=== PATIENT | female | born 1930 | race Caucasian/White ===

== ENCOUNTER 2017-08-13 14:10 | Outpatient (CLI) | payer MEDICARE, OTHER | END 2017-08-13 14:11 | disposition home or self-care (01) | LOC: BICMAMMO 14:10 | PROVIDERS: ATTEND Family Medicine | DX: Z12.31 Encounter for screening mammogram for malignant neoplasm of breast (principal); R92.1 Mammographic calcification found on diagnostic imaging of breast; Z85.3 Personal history of malignant neoplasm of breast | CPT/HCPCS: 77063; 77067 ==

== ENCOUNTER 2017-08-20 07:28 | Outpatient (CLI) | payer MEDICARE, OTHER ==
--- NOTE | 2017-08-20 17:54 | MRI ---
MRI BRAIN WITH AND WITHOUT IV CONTRAST: INDICATIONS: History of breast cancer and memory loss. COMPARISON: 03/23/2016 CONTAST: [facility] 17 mL. FINDINGS: No area of restricted diffusion is present. No intracranial hemorrhage is noted. No abnormal enhanc ement is demonstrated. There is mild generalized cerebral and cerebellar atrophy. There is progress kassandra severe chronic small vessel white matter ischemic change. The septum pellucidum and third ventri minerva are midline. There are appropriate flow voids seen within the major intracranial vessels. The n ative lens has been replaced. There is some mild mucosal thickening within the ethmoid air cells. IMPRESSION: 1. No overt evidence to suggest intracranial metastatic disease. 2. Worsening severe chronic small vessel white matter ischemic change. 3. Mild to moderate generalized cerebral and cerebellar atrophy. 4. Mild paranasal sinus disease. POS: [facility]
== END 2017-08-20 07:29 | disposition home or self-care (01) ==
LOC: BICMRI 07:28 → MRI 07:29
PROVIDERS: ATTEND Family Medicine
DX: G30.9 Alzheimer's disease, unspecified (principal); F02.80 Dementia in other diseases classified elsewhere, unspecified severity, without behavioral disturbance, psychotic disturbance, mood disturbance, and anxiety; G31.9 Degenerative disease of nervous system, unspecified; J32.9 Chronic sinusitis, unspecified
CPT/HCPCS: 36415; 70553; 80048; 80061; 80076

== ENCOUNTER 2017-11-08 10:20 | Outpatient (CLI) | payer MEDICARE, OTHER | END 2017-11-08 10:21 | disposition home or self-care (01) | LOC: BICULT 10:20 | PROVIDERS: ATTEND Urology | DX: R31.29 Other microscopic hematuria (principal) | CPT/HCPCS: 76770 ==

== ENCOUNTER 2017-12-25 10:44 | Observation (INO) | payer MEDICARE, OTHER ==
--- NOTE | 2017-12-25 11:21 | CT ---
CT BRAIN NONCONTRAST: 12/25/2017 10:56 a.m. HISTORY: A 67-year-old female with acute stroke symptoms: Dysarthria. Dr. Mina called this stroke alert protocol report STAT to Dr. Pederson at 11:08 a.m. on 12/25/2017. FINDINGS: There is no midline shift or any other mass effect. There is no evidence of acute intracranial hemor rhage, large cortical infarction, or extraaxial fluid collection. The calvarium is intact. There is diffuse parenchymal volume loss. There are low attenuation areas in the white matter. These are no nspecific, but in a patient of this age, they are probably chronic ischemic white matter changes due to microvascular atherosclerosis. There is mild to moderate ventriculomegaly involving the lateral a nd third ventricles. There is no interval change compared to the MRI of 08/20/2017. IMPRESSION: 1) No acute intracranial findings. 2) Involutional changes and moderately severe chronic ischemic white matter changes. 3) Stable ventriculomegaly. CODE CR jn [] POS: [facility]
[2017-12-25 12:11] LABS: CKMB 1.2 ng/mL (0-6.6); Troponin I Less than 0.010 ng/mL (< 0.028)
[2017-12-25] MEDS ORDERED: Ondansetron HCl/PF 4 MG/2 ML Vial ONE (12:14)
[2017-12-25 12:16] LABS: ALT (SGPT) 15 U/L (8-55); AST (SGOT) 26 U/L (5-34); Albumin 4.2 g/dL (3.4-4.8); Alkaline Phosphatase 65 U/L (40-150); Anion Gap 16 mmol/L (10-20); BUN (Urea Nitrogen) 19 mg/dL (9.8-20.1); Bilirubin, Total 1.1 mg/dL (0.2-1.2); CK (CPK) 68 U/L (29-168); Calc. Creatinine Clearance 0 mL/min (70-130); Calcium 9.6 mg/dL (7.8-10.44); Carbon Dioxide 22 mmol/L (23-31); Chloride 101 mmol/L (98-107); Estimated GFR-MDRD 65; Globulin 2.7 g/dL (2.4-3.5); Glucose 128 mg/dL (83-110); Potassium 4.4 mmol/L (3.5-5.1); Protein, Total 6.9 g/dL (6.0-8.3); Sodium 135 mmol/L (136-145)
[2017-12-25 12:21] LABS: Hemoglobin 14.8 g/dL (12.0-16.0); Mean Corpuscular HGB CONC 32.5 g/dL (32.0-36.0); Mean Corpuscular Hemoglobin 30.2 pg (27.0-31.0); Mean Corpuscular Volume 92.8 fL (78.0-98.0); Mean Platelet Volume 9.2 fL (7.4-10.4); Platelet Count 142 thou/uL (130-400); RBC Distribution Width 13.2 % (11.5-14.5); Red Blood Cell (RBC) Count 4.91 mill/uL (4.20-5.40); White Blood Cell (WBC) Count 7.4 thou/uL (4.8-10.8)
[2017-12-25 12:23] LABS: Band 9 % (5-11); Lymphocytes 14 % (21-51); MDiff Complete? YES; Monocytes 5 % (0-10); Neutrophil 71 % (42-75); RBC Morphology Normal; Reactive Lymphocytes 1 % (0-10)
[2017-12-25 12:48] LABS: Bilirubin Negative (Negative); Blood, Urine Moderate (Negative); Clarity TURBID (Clear); Glucose, Urine (Dipstick) Negative (Negative); Leukocyte Large (Negative); Nitrite Positive (Negative); Protein, Urine (Dipstick) 300 mg/dL (Neg-Trace); Specific Gravity, Urine 1.012 (1.002-1.036)
[2017-12-25 12:51] LABS: Bacteria/HPF 4+ HPF (None Seen); Hyaline Casts/LPF 4-6 HYALINE CAST LPF (0-3 Hyaline); Pathc Cast-AUWi Flag 1.83 (0-2.49); Squamous Epithelial 0-3 HPF (0-3)
[2017-12-25 12:55] LABS: Yeast-AUWi Flag 84.3 (0-25.0)
[2017-12-25 13:02] LABS: Yeast-All Forms None Seen HPF (None Seen)
[2017-12-25] MEDS ORDERED: cefTRIAXone\\ROCEPHIN 2 GM VIAL ONE (13:35)
--- NOTE | 2017-12-25 14:08 | PDOC.FPRHP ---
- History of Present Illness Chief Complaint: Slurred speech, aphasia History of Present Illness: Patient's noted that she was having difficulty talking to him and that she was having slurred speech. Patient's denied any weakness or facial dropping that he noted. Patient was "aphasic" per . This all started around 9:00 AM. She was fine upon waking up this AM. Over the last few days no new complaints. Patient does have history of dementia. Patient denies any painful urination, increased frequency, or chills at home. Patient's states that she never wets her bed, but this morning she did. Chills this AM before presenting to ED and chills progressed here. Appetite has been poor the last 2-3 weeks. Patient normally gets around with walker. Denies chest pain, shortness of breath. Has not felt particularly sick aside from nausea this AM. No emesis or diarrhea. Patient with history of ulcerative colitis. Endorses transiently blurred vision x2 weeks. Dizziness upon standing going back to fall over a year ago. History of atrial fibrillation cardioconverted years ago. Never on blood thinners due to fall risk. Follows with Dr. Argueta. Last saw Dr. Argueta a few months ago. - Allergies/Adverse Reactions Allergies Allergy/AdvReac Type Severity Reaction Status Date / Time levofloxacin [From Levaquin] Allergy Unknown Nausea Verified 04/17/16 23:29 morphine Allergy Unknown Nausea Verified 04/17/16 23:29 - Home Medications Medication Instructions Recorded Confirmed Type Atorvastatin Calcium [Lipitor] 80 mg PO HS 10/29/15 12/25/17 History Multivit with Iron,Minerals 1 tablet PO DAILY 10/29/15 12/25/17 History [[facility]] azaTHIOprine 50 mg PO QAM 10/29/15 12/25/17 History Mesalamine [Delzicol] 800 mg PO BID 11/02/15 12/25/17 History Calcium Carbonate/Vitamin D3 2 tablet PO DAILY 11/28/15 12/25/17 History [Calcium 600 + Vitamin D] azaTHIOprine [Imuran] 50 mg PO HS 11/28/15 12/25/17 History Aspirin [Low Dose Aspirin EC] 81 mg PO DAILY 02/05/16 12/25/17 History Ascorbic Acid [Vitamin C Chewable 500 mg PO DAILY 04/17/16 12/25/17 History Tablet] Celecoxib 200 g PO DAILY 12/25/17 12/25/17 History Cetirizine HCl [Zyrtec] 10 mg PO DAILY 12/25/17 12/25/17 History Donepezil HCl 10 mg PO DAILY 12/25/17 12/25/17 History Estradiol [Estrace 0.01% Vaginal 1 applic VAG Q7D 12/25/17 12/25/17 History Cream] Metoprolol Succinate [Toprol Xl] 50 mg PO BID 12/25/17 12/25/17 History Mirabegron [Myrbetriq] 50 mg PO DAILY 12/25/17 12/25/17 History - History PMHx: HTN well controlled, HLD, Ulcerative colitis, Atrial fibrillation cardioconverted, Hx of breast cancer PSHx: Bilateral knee replacement surgery, Mastectomy of right breast, Back pain to remove spinal lesion, Cataract surgery, Aortic and mitral valve replacement FHx: Father with CAD s/p CABG, Mother with history of CVA in early Social: Patient lives at home with . They have help 8 AM to 8 PM. Quit smoking 1992, smoking 4-5 cigarettes per day. Endorses 30 mL of rum a day. Denies drug use. - Review of Systems ROS unobtainable: other (Most ROS obtained from patient's , pt with history of dementia) General: reports: fever/chills, weight/appetite/sleep changes (over last several weeks decreased appetite) Eyes: reports: vision changes ENT: denies: nasal congestion, rhinorrhea Respiratory: denies: cough, congestion, shortness of breath Cardiovascular: denies: chest pain, palpitation, edema Gastrointestinal: reports: nausea, abdominal pain (ulcerative colitis). denies : vomiting, diarrhea, constipation Genitourinary: reports: incontinence (x1). denies: dysuria, polyuria Skin: denies: rashes, lesions, jaundice Musculoskeletal: reports: tenderness, stiffness, swelling, arthritis/arthralgias Neurological: denies: numbness, weakness - Vital signs BP: 115/88 HR: 100 RR: 19 Tmax: 97.9 Pox: 93% on RA Wt: 83 kg - Physical Exam Constitutional: NAD, well developed, other (Awake, alert, oriented to person and place.) HEENT: normocephalic and atraumatic Heart: RRR, no edema, other (3/6 systolic murmur, heard best at mitral listening post) Lungs: CTAB, no respiratory distress, good air movement, no rales/rhonchi, no wheezing, no retractions Abdomen: soft, non-tender, bowel sounds present, no masses/distention -Musculoskeletal: Decreased ROM throughout. Worse in right upper extremity due to pain. -Neurological: Decreased strength in upper and lower extremity on right as compared to left. Pronator drift on right. No nystagmus. Skin: no rash/lesions, good turgor, capillary refill <2 seconds Heme/Lymphatic: no unusual bruising or bleeding -Psychiatric: Does not have good insight. Unable to answer many questions. Oriented x2 to person and place. FMR H&P: Results - Labs Result Diagrams: 12/25/17 10:57 12/25/17 10:57 Lab results: WBC 7.4 thou/uL (4.8-10.8) 12/25/17 10:57 Hgb 14.8 g/dL (12.0-16.0) 12/25/17 10:57 Hct 45.6 % (36.0-47.0) 12/25/17 10:57 MCV 92.8 fL (78.0-98.0) 12/25/17 10:57 Plt Count 142 thou/uL (130-400) 12/25/17 10:57 Band Neuts % (Manual) 9 % (5-11) 12/25/17 10:57 Sodium 135 mmol/L (136-145) L 12/25/17 10:57 Potassium 4.4 mmol/L (3.5-5.1) 12/25/17 10:57 Chloride 101 mmol/L (98-107) 12/25/17 10:57 Carbon Dioxide 22 mmol/L (23-31) L 12/25/17 10:57 BUN 19 mg/dL (9.8-20.1) 12/25/17 10:57 Creatinine 0.83 mg/dL (0.6-1.1) 12/25/17 10:57 Glucose 128 mg/dL (83-110) H 12/25/17 10:57 Lactic Acid 1.0 mmol/L (0.5-2.2) 12/25/17 10:57 Calcium 9.6 mg/dL (7.8-10.44) 12/25/17 10:57 Total Bilirubin 1.1 mg/dL (0.2-1.2) 12/25/17 10:57 AST 26 U/L (5-34) 12/25/17 10:57 ALT 15 U/L (8-55) 12/25/17 10:57 Alkaline Phosphatase 65 U/L (40-150) 12/25/17 10:57 Creatine Kinase 68 U/L (29-168) 12/25/17 10:57 CK-MB (CK-2) 1.2 ng/mL (0-6.6) 12/25/17 10:57 Serum Total Protein 6.9 g/dL (6.0-8.3) 12/25/17 10:57 Albumin 4.2 g/dL (3.4-4.8) 12/25/17 10:57 Urine Ketones Negative mg/dL (Negative) 12/25/17 12:26 Urine Blood Moderate (Negative) H 12/25/17 12:26 Urine Nitrite Positive (Negative) H 12/25/17 12:26 Ur Leukocyte Esterase Large (Negative) H 12/25/17 12:26 Urine RBC 7-10 HPF (0-3) H 12/25/17 12:26 Urine WBC Greater Than 50-TNTC HPF (0-3) H 12/25/17 12:26 Ur Squamous Epith Cells 0-3 HPF (0-3) 12/25/17 12:26 Urine Bacteria 4+ HPF (None Seen) H 12/25/17 12:26 FMR H&P: A/P - Problem List (1) UTI (urinary tract infection) Current Visit: Yes Status: Acute (2) TIA (transient ischemic attack) Current Visit: Yes Status: Acute Code(s): G45.9 - TRANSIENT CEREBRAL ISCHEMIC ATTACK, UNSPECIFIED (3) HLD (hyperlipidemia) Current Visit: No Status: Chronic Code(s): E78.5 - HYPERLIPIDEMIA, UNSPECIFIED (4) HTN (hypertension) Current Visit: No Status: Chronic Code(s): I10 - ESSENTIAL (PRIMARY) HYPERTENSION Qualifiers: Hypertension type: essential hypertension Qualified Code(s): I10 - Essential (primary) hypertension (5) History of atrial fibrillation Current Visit: No Status: Chronic Code(s): Z86.79 - PERSONAL HISTORY OF OTHER DISEASES OF THE CIRCULATORY SYSTEM (6) Ulcerative (chronic) enterocolitis Current Visit: No Status: Chronic Code(s): K51.00 - ULCERATIVE (CHRONIC) PANCOLITIS WITHOUT COMPLICATIONS Qualifiers: Digestive disease complication type: without complication Qualified Code(s) : K51.00 - Ulcerative (chronic) pancolitis without complications - Plan Possible TIA/CVA - CT brain: no acute intracranial findings, stable ventriculomegaly, chronic ischemic white matter changes - has had recent MRIs with chronic white matter changes and evaluation for vestibular dysfunction in outpatient setting which has been negative - transient weakness and decrease in speech - reports abnormal heart rhythm at times at home - neuro checks q4h - stroke team was consulted - pending CTA - EKG showed RBBB UTI, uncomplicated - pending Ucx - started on rocephin (12/25) in ED, will continue - could be contributory to patient's presentation HTN - BP systolic in 120s - continue home metoprolol, ASA Dementia - baseline dementia that has been diagnosed >1yr ago - patient oriented x2 Hx of atrial fibrillation - has been in NSR HLD - continue home atorvastatin Hx of UC - continue home azathioprine Hx of breast cancer - s/p R mastectomy in Diet: HH Ppx: Lovenox Dispo: admit for observation FMR H&P: Upper Level - Pertinent history Patient presents with aphasia and slurred speech as reported by her that occurred at 9 AM this morning. Per the patient's , she reportedly woke up this morning and was having no difficulties. Around 9 AM he started to ask her some questions and she was unable to respond. Additionally, patient had what appeared to be slurred speech per report. Of note, patient does have a history of vascular dementia, and the states that she can go in and out of similar events like this, but he got concerned enough this time that he decided to bring her to the ER. Additionally, she has had chills over the last day. She denies any dysuria, urinary frequency, abdominal pain, chest pain, or shortness of breath. Over the last day she has been nauseous, and she has had a decreased appetite. The reports an abnormal rhythm at times when listening to her heart. It seems like a skipped beat per the patient's . Patient recently had an MRI a few months ago which showed white matter changes, but no other abnormalities. 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 - Pertinent findings General: Awake, alert, oriented x2 to person and place HEENT: Dentures in place, glasses on, EOMI, PERRLA Cardio: 3/6 harsh systolic murmur, Regular rate, regular rhythm Resp: Clear to auscultation, no acute respiratory distress. Neuro: Right pronator drift, weakness noted on right upper and lower extremities compared to left. Strength 3/5 on right. No nystagmus. CN's II-XII intact. GI: No abdominal tenderness. Soft, non-distended. - Plan Date/Time: 12/25/17 7920 I, [Savannah Mason, ], have evaluated this patient and agree with findings/ plan as outlined by risk intern resident. Pertinent changes/additions are listed here. 87 year old female with history of dementia that presents with slurred speech and aphasia Possible CVA vs. TIA - CT brain with ventriculomegaly - Concern for possible NPH noted in the past as patient has gait instability and dementia - CTA head and neck pending - Stroke team consulted - Notable neurologic exam abnormalities as mentioned in PE - Recent MRI with white matter changes but no other notable abnormalities - PT/OT 2. UTI - Continue rocephin (12/25) - Urine culture pending 3. HTN - Continue home medications - Well controlled 4. HLD - Continue home medications 5. Ulcerative colitis - On medications - No active flare currently 6. Hx of atrial fibrillation - No current irregularity - Continue to monitor 7. Hx of breast cancer - s/p mastectomy 8. Dementia - Vascular dementia and possible component of AD DVT PPX: lovenox GI PPX: Dispo: Stable. Work up for possible CVA. May be TIA. Anticipate LOS <48 hours. Attending Addendum - Attending Addendum Date/Time: 12/25/17 9545 I personally evaluated the patient and discussed the management with Dr. Myers I agree with the History, Examination, Assessment and Plan documented above with any addition or exceptions noted below- Briefly this is a 87 year old female with h/o HTN and dementia who presented after an episode of aphasia this morning per her . Episode lastly briefly but due to this brought patient to ER. She has also been having some shaking chillsover the last 1-2 days. Denies any fever, N/V, back pain. She has had some urinary frequency for which she has been seeing Lenard Pearl with urology. She denies any dysuria or back pain. PMH/PSH/ALL/Meds reviewed and agree with residents documentation. Afebrile VSS Exam reoeated by me and agree with residents findings except right sided weakness. Labs: CT brain negative excpet for chronic white matter changes, WBC=7.4; U/A (+) leuko esterase, mod blood, (+) nitrite, >50 WBC, 4+ bact. A/P: 1) UTI - continue rocephin; urine culture pending. 2) Transient aphasia and right sided weakness- CT brain negative; will check CT angio. Serial neuro checks.
[2017-12-25] MEDS ORDERED: ISOVUE-370 76%-LOCM 1 ML ONE (14:47)
[2017-12-25] MEDS ORDERED: Ondansetron ODT 4 MG TAB SL PRN (15:22)
[2017-12-25] MEDS ORDERED: Acetaminophen 325 MG TAB PO PRN (15:22)
[2017-12-25] MEDS ORDERED: Ondansetron HCl/PF 4 MG/2 ML Vial IVP PRN (15:22)
[2017-12-25 15:51] VITALS: BMI 27.9
--- NOTE | 2017-12-25 19:02 | CT ---
CT ANGIOGRAM BRAIN WITH IV CONTRAST AND 3D RECONSTRUCTIONS CT ANGIOGRAM NECK WITH IV CONTRAST AND 3D RECONSTRUCTIONS 12/25/17 HISTORY: Slurred speech. History of TIA. Right sided weakness. COMPARISON: Noncontrast CT head on 12/25/17 at 1056 hours. FINDINGS: CT ANGIOGRAM HEAD: There are atherosclerotic vascular calcifications involving the carotid siphons with mild degrees of narrowing involving the carotid siphons. The bilateral anterior cerebral and middle cerebral arteries are patent. The distal bilateral vertebral arteries and basilar artery are patent. The bilateral pos terior cerebral and superior cerebellar arteries also appear patent. No focal significant stenosis or branch occlusion is seen, and no aneurysm is identified within the limitations of the technique of t his exam. As noted on the noncontrast CT head, there is diminished attenuation of the periventricular white mat ter likely attributable to severe chronic small vessel ischemic changes. There is evidence of cerebra l volume loss. Minimal mucosal thickening is seen involving a few ethmoidal air cells. IMPRESSION: No focal stenosis or branch occlusion is seen involving the hoh of [place] or vertebrobasilar syste m. CT ANGIOGRAM NECK: There are atherosclerotic vascular calcifications involving the aortic arch. There is a normal arrang ement of the great vessels at the aortic arch, but the origin and proximal left subclavian artery are mostly obscured due to vascular calcifications as well as a dense contrast within the innominate vei n on the left which limits adequate evaluation of the left subclavian artery proximally. There are va scular calcifications seen in the visualized subclavian arteries bilaterally which are otherwise mann nt. The innominate artery as well as the bilateral common carotid arteries are patent. Prominent vascular calcifications are seen at the origins of each internal carotid artery much greate r on the left, but there is less than 50% maximal stenosis involving each internal carotid artery bas ed on NASCET criteria. The bilateral vertebral arteries are codominant and patent to the level of the basilar artery. The ba silar artery is patent. There is a peripherally calcified subcentimeter hypodense lesion within the right lobe of the thyroid gland. This is stable when compared to CTA of the chest on 04/17/16. The bilateral parotid and submandibular glands have a normal CT appearance. There is no evidence of lymphadenopathy. Degenerative changes are seen in the cervical spine as well as visualized upper thoracic spine. The v isualized lung apices are clear. IMPRESSION: 1. Less than 50% stenosis according to NASCET criteria involving the bilateral internal carotid arteries. Prominent calcified atherosclerotic plaques are seen involving the origin and proximal inte rnal carotid arteries bilaterally, greater on the left. 2. Patent and codominant bilateral vertebral arteries. 3. Stable peripherally calcified hypodense subcentimeter right thyroid nodule. 4. Degenerative changes seen throughout the cervical spine. There is trace anterolisthesis of C3 on C4 and C6 on C7 likely related to the facet degenerative changes at these levels. POS: [facility]
[2017-12-25] MEDS ORDERED: Prevnar 13-Val Conj/PF 0.5 ML SYRINGE IM ONE (21:00)
[2017-12-25] MEDS ORDERED: azaTHIOprine 50 MG TAB PO SCH (21:00)
[2017-12-25] MEDS ORDERED: Atorvastatin Calcium 40 MG TAB PO SCH (21:00)
[2017-12-26] MEDS ORDERED: Sodium Chloride 0.9% 500 ML IV SCH (01:30)
[2017-12-26] MEDS ORDERED: cefTRIAXone\\ROCEPHIN 1 GM in Sodium Chloride 0.9% 100 ML IVPB SCH ×2 (02:00→14:00)
--- NOTE | 2017-12-26 05:15 | PDOC.FM ---
- Subjective Subjective: Ms. Kaur felt well this morning with no complaints. Denied fever/chills. A& Ox2. Had hypotension last night BP 90s/60s. Given 500mL bolus and BP responded appropriately. Now systolic 130s. - Objective MAR Reviewed: Yes Vital Signs & Weight: Vital Signs (12 hours) Temp Pulse Resp BP BP BP BP 12/26/17 01:07 93/51 L 99/59 L 101/58 L 12/26/17 00:00 99.4 F 88 16 89/55 L 12/25/17 20:00 99.6 F 97 18 129/83 12/25/17 17:30 97.9 F 98 20 Pulse Ox 12/26/17 01:07 12/26/17 00:00 92 L 12/25/17 20:00 87 L 12/25/17 17:30 Weight Weight 83.37 kg I&O: 12/24/17 12/25/17 12/26/17 06:59 06:59 06:59 Intake Total 500 Balance 500 Result Diagrams: 12/26/17 04:55 12/26/17 04:55 <Steffi Myers - Last Filed: 12/26/17 08:40> - Objective Vital Signs & Weight: Vital Signs (12 hours) Temp Pulse Pulse Pulse Resp BP BP 12/26/17 13:43 77 82 105/54 L 116/70 12/26/17 11:56 97.7 F 79 16 12/26/17 08:00 97.2 F L 78 16 12/26/17 07:39 98.5 F 80 14 BP Pulse Ox Pulse Ox Pulse Ox 12/26/17 13:43 92 L 93 L 12/26/17 11:56 138/80 93 L 12/26/17 08:00 132/76 93 L 12/26/17 07:39 Weight Weight 83.37 kg I&O: 12/25/17 12/26/17 12/27/17 06:59 06:59 06:59 Intake Total 1045 Balance 1045 Result Diagrams: 12/26/17 04:55 12/26/17 04:55 <Corinne Chan - Last Filed: 12/26/17 16:44> Phys Exam - Physical Examination Constitutional: NAD Respiratory: no wheezing, no rales, no rhonchi, clear to auscultation bilateral Cardiovascular: RRR 3/6 systolic murmur Gastrointestinal: soft, non-tender, no distention, positive bowel sounds Musculoskeletal: no edema, pulses present Neurological: non-focal CN 2-12 intact, RUE/LUE/RLE/LLE 5/5 muscle strength Psychiatric: normal affect Deviation from normal: A&Ox2 Skin: normal turgor <Myers,Steffi - Last Filed: 12/26/17 08:40> Dx/Plan (1) UTI (urinary tract infection) Status: Acute (2) TIA (transient ischemic attack) Code(s): G45.9 - TRANSIENT CEREBRAL ISCHEMIC ATTACK, UNSPECIFIED Status: Acute (3) HLD (hyperlipidemia) Code(s): E78.5 - HYPERLIPIDEMIA, UNSPECIFIED Status: Chronic (4) HTN (hypertension) Code(s): I10 - ESSENTIAL (PRIMARY) HYPERTENSION Status: Chronic Qualifiers: Hypertension type: essential hypertension Qualified Code(s): I10 - Essential (primary) hypertension (5) History of atrial fibrillation Code(s): Z86.79 - PERSONAL HISTORY OF OTHER DISEASES OF THE CIRCULATORY SYSTEM Status: Chronic (6) Ulcerative (chronic) enterocolitis Code(s): K51.00 - ULCERATIVE (CHRONIC) PANCOLITIS WITHOUT COMPLICATIONS Status : Chronic Qualifiers: Digestive disease complication type: without complication Qualified Code(s) : K51.00 - Ulcerative (chronic) pancolitis without complications - Plan Plan: Possible TIA/CVA - CT brain: no acute intracranial findings, stable ventriculomegaly, chronic ischemic white matter changes - has had recent MRIs with chronic white matter changes and evaluation for vestibular dysfunction in outpatient setting which has been negative - transient weakness and decrease in speech which has now resolved - neuro checks q4h - stroke team was consulted - CTA negative - EKG showed RBBB - Considering negative workup until this point and symptom resolution, no current concern for TIA UTI, uncomplicated - pending Ucx - started on rocephin (12/25) in ED, will continue - could be contributory to patient's presentation - afebrile since admission HTN - BP systolic in 120s - continue home metoprolol, ASA Dementia - baseline dementia that has been diagnosed >1yr ago - patient oriented x2 Hx of atrial fibrillation - has been in NSR HLD - continue home atorvastatin Hx of UC - continue home azathioprine Hx of breast cancer - s/p R mastectomy in Diet: HH Ppx: Lovenox Dispo: possible discharge pending patient's continued improvement <Steffi Myers - Last Filed: 12/26/17 08:40> Attending Addendum - Attending Addendum Date/Time: 12/26/17 6301 I personally evaluated the patient and discussed the management with Dr. Myers. I agree with the History, Examination, Assessment and Plan documented above with any addition or exceptions noted below. Patient's speech symptoms have resolved. No signs of weakness. Will get MRI brain to complete TIA workup. If negative will d/c home. Continue antibiotics for UTI. <Corinne Chan - Last Filed: 12/26/17 16:44>
[2017-12-26 06:06] LABS: Anion Gap 12 mmol/L (10-20); BUN (Urea Nitrogen) 22 mg/dL (9.8-20.1); Calc. Creatinine Clearance 63 mL/min (70-130); Calcium 8.8 mg/dL (7.8-10.44); Carbon Dioxide 24 mmol/L (23-31); Chloride 103 mmol/L (98-107); Estimated GFR-MDRD 65; Glucose 111 mg/dL (83-110); Potassium 4.1 mmol/L (3.5-5.1); Sodium 135 mmol/L (136-145)
[2017-12-26 06:23] LABS: Hemoglobin 13.4 g/dL (12.0-16.0); Mean Corpuscular HGB CONC 33.1 g/dL (32.0-36.0); Mean Corpuscular Hemoglobin 31.4 pg (27.0-31.0); Mean Corpuscular Volume 94.7 fL (78.0-98.0); Mean Platelet Volume 8.5 fL (7.4-10.4); Platelet Count 121 thou/uL (130-400); RBC Distribution Width 13.2 % (11.5-14.5); Red Blood Cell (RBC) Count 4.28 mill/uL (4.20-5.40); White Blood Cell (WBC) Count 7.3 thou/uL (4.8-10.8)
[2017-12-26 06:52] LABS: Band 9 % (5-11); Lymphocytes 13 % (21-51); MDiff Complete? YES; Monocytes 4 % (0-10); Neutrophil 74 % (42-75)
[2017-12-26] MEDS ORDERED: Mesalamine DR 400 mg Capsule PO SCH (08:00)
[2017-12-26] MEDS ORDERED: Loratadine 10 MG TAB PO SCH (09:00)
[2017-12-26] MEDS ORDERED: Donepezil HCl 10 MG TAB PO SCH (09:00)
[2017-12-26] MEDS ORDERED: azaTHIOprine 50 MG TAB PO SCH (09:00)
[2017-12-26] MEDS ORDERED: Ascorbic Acid 500 mg Chewable Tablet PO SCH (09:00)
[2017-12-26] MEDS ORDERED: Multivitamin W/ Minerals 1 TAB PO SCH (09:00)
[2017-12-26] MEDS ORDERED: Aspirin 81 mg Enteric Coated Tablet PO SCH (09:00)
[2017-12-26] MEDS ORDERED: CeleCOXIB 100 MG CAP PO SCH (09:00)
[2017-12-26] MEDS ORDERED: Calcium Carbonate + Vit D 1 TAB PO SCH (09:00)
[2017-12-26] MEDS ORDERED: Enoxaparin Sodium 30 MG/0.3 ML SYRINGE SC SCH (09:00)
[2017-12-26 11:58] VITALS: TEMP 97.7
--- NOTE | 2017-12-26 13:59 | MRI ---
BRAIN MRI WITHOUT IV CONTRAST: HISTORY: An 87-year-old female with a history of dysarthria, slurred speech, and a history of a TIA. Concern for TIA versus infarct. COMPARISON: 11/15/2011 FINDINGS: There is some motion artifact, which lowers the sensitivity of this study. There is some atrophy and chronic white matter ischemic change noted bilaterally. No evidence for acute infarct. Normal expe cted flow voids are present. No mass or midline shift. No acute hemorrhage. IMPRESSION: 1. No evidence for acute infarct. 2. Atrophy and chronic white matter ischemic changes, stable. 3. Mild sinus mucosal disease. 4. No significant acute process. POS: [facility]
[2017-12-26 15:29] VITALS: BP 105/54
--- NOTE | 2017-12-27 14:38 | DIS-2 ---
DATE OF ADMISSION: 12/25/2017 DATE OF DISCHARGE: 12/26/2017 RESIDENT: Steffi Myers D.O. ADMITTING ATTENDING: Dr. Nadine Brennan. DISCHARGE ATTENDING: Dr. Corinne Chan. CONSULTATIONS: Stroke team. PROCEDURES: 1. Brain CT showed no acute intracranial findings, stable ventriculomegaly, severe chronic ischemic white matter changes. 2. CT angiography [place] showed no focal stenosis or branch occlusion involving the [place], less than 50% stenosis involving bilateral internal carotid arteries, patent bilateral vertebral arteries, stable peripherally calcified hypodense subcentimeter right thyroid nodule, degenerative cervical spine changes. 3. Brain MRI showed no evidence for acute infarct, atrophy and chronic white matter ischemic changes, stable, mild sinus mucosal disease. PRIMARY DIAGNOSES: 1. Urinary tract infection. 2. Transient ischemic attack, rule out. SECONDARY DIAGNOSES: 1. Hypertension. 2. Dementia. 3. History of atrial fibrillation. 4. Hyperlipidemia. 5. Ulcerative colitis. DISCHARGE MEDICATIONS: 1. Cephalexin 500 mg p.o. q.12 hours for 3 days, #6. 2. Caltrate 600 plus vitamin D 2 tabs p.o. daily. 3. Celecoxib 200 g p.o. daily. 4. Mirabegron 50 mg p.o. daily. 5. 10 mg p.o. daily. 6. Estradiol vaginal cream 1 application q.7 days. 7. Metoprolol succinate 50 mg p.o. b.i.d. 8. Zyrtec 10 mg p.o. daily. 9. Vitamin C 500 mg tablet p.o. daily. 10. Aspirin 81 mg p.o. daily. 11. Azathioprine 50 mg p.o. at bedtime. 12. Mesalamine 800 mg p.o. b.i.d. 13. Lipitor 80 mg p.o. at bedtime. 14. Azathioprine 50 mg p.o. q.a.m. HOSPITAL COURSE: The patient presented with after her noticed that she was having difficulty speaking. No weakness or facial drooping noted at that time. The patient has baseline dementia. The patient denies any symptoms. Urinary tract infection, uncomplicated was found and treated during hospitalization. Upon physical exam in the ER, concern for stroke was noted due to a right-sided weakness, this however resolved upon next physical examination. Nevertheless, there was concern for TIA and the stroke workup was completed and was negative on MRI. The patient's speech improved, she had no complaints and neuro exam was normal upon discharge. DISPOSITION: Stable. DISCHARGE INSTRUCTIONS: 1. Location: Home. 2. Diet: Heart healthy. 3. Activity: As tolerated. 4. Followup: Follow up with PCP, Dr. Toribio in 7 days. LINDY
--- NOTE | 2017-12-29 20:30 | EKG ---
Test Reason : STROKE Blood Pressure : / mmHG Vent. Rate : 085 BPM Atrial Rate : 088 BPM P-R Int : 000 ms QRS Dur : 142 ms QT Int : 400 ms P-R-T Axes : 000 084 030 degrees QTc Int : 476 ms Undetermined rhythm Right bundle branch block Cannot rule out Inferior infarct , age undetermined Abnormal ECG Confirmed by CHET PERSON, GIUSEPPE ([id number]), magazine editor LUICLLE RAUSCH ([id number]) on 12/29/2017 8:30:18 PM Referred By: Confirmed By:GIUSEPPE ROSENBERG MD
== END 2017-12-26 15:49 | disposition home or self-care (01) ==
LOC: ERS 10:44 → 2SE 15:16
PROVIDERS: ADMIT Family Medicine; ATTEND Family Medicine
DX: R47.81 Slurred speech (principal); N39.0 Urinary tract infection, site not specified; I10 Essential (primary) hypertension; E78.5 Hyperlipidemia, unspecified; K51.00 Ulcerative (chronic) pancolitis without complications; I48.91 Unspecified atrial fibrillation; F03.90 Unspecified dementia, unspecified severity, without behavioral disturbance, psychotic disturbance, mood disturbance, and anxiety; Z79.82 Long term (current) use of aspirin; Z79.899 Other long term (current) drug therapy; Z88.1 Allergy status to other antibiotic agents
CPT/HCPCS: 70450; 70496; 70498; 70551; 80048; 80053; 82550; 82553; 82962; 83605; 84484; 85025 ×2; 87077; 87086; 87186; 90670; 93005; 96365; 96372; 96375; 97116; 97139 ×2; 97535; 99285; G0009; G0378 ×2; G8978; G8979; G8987; G8988; G8989; 36415; 36416; 81003; 81015; 90471; G8996-GN-CJ; G8997-GN-CI; J0696; J1650; J2405; J7050; J7500

== ENCOUNTER 2018-01-22 09:44 | Inpatient (IN) | payer MEDICARE, OTHER ==
[2018-01-22] MEDS ORDERED: ISOVUE-370 76%-LOCM 1 ML ONE (10:50)
[2018-01-22 11:31] LABS: Hemoglobin 13.3 g/dL (12.0-16.0); Mean Corpuscular HGB CONC 33.3 g/dL (32.0-36.0); Mean Corpuscular Hemoglobin 31.1 pg (27.0-31.0); Mean Corpuscular Volume 93.4 fL (78.0-98.0); Mean Platelet Volume 8.8 fL (7.4-10.4); Platelet Count 126 thou/uL (130-400); RBC Distribution Width 13.3 % (11.5-14.5); Red Blood Cell (RBC) Count 4.28 mill/uL (4.20-5.40); White Blood Cell (WBC) Count 10.4 thou/uL (4.8-10.8)
[2018-01-22 11:44] LABS: ALT (SGPT) 30 U/L (8-55); AST (SGOT) 41 U/L (5-34); Albumin 3.6 g/dL (3.4-4.8); Alkaline Phosphatase 120 U/L (40-150); Anion Gap 14 mmol/L (10-20); BUN (Urea Nitrogen) 20 mg/dL (9.8-20.1); Bilirubin, Total 1.3 mg/dL (0.2-1.2); Calc. Creatinine Clearance 0 mL/min (70-130); Carbon Dioxide 24 mmol/L (23-31); Chloride 100 mmol/L (98-107); Estimated GFR-MDRD 69; Globulin 2.7 g/dL (2.4-3.5); Glucose 130 mg/dL (83-110); Lipase 7 U/L (8-78); Potassium 3.8 mmol/L (3.5-5.1); Protein, Total 6.3 g/dL (6.0-8.3); Sodium 134 mmol/L (136-145)
[2018-01-22 11:48] LABS: CKMB 0.7 ng/mL (0-6.6); Troponin I Less than 0.010 ng/mL (< 0.028)
[2018-01-22 11:58] LABS: Bilirubin Small (Negative); Blood, Urine Negative (Negative); Clarity TURBID (Clear); Glucose, Urine (Dipstick) Negative (Negative); Leukocyte Large (Negative); Nitrite Negative (Negative); Protein, Urine (Dipstick) 30 mg/dL (Neg-Trace); Specific Gravity, Urine 1.026 (1.002-1.036); pH, Urine 5.5 (5.0-9.0)
[2018-01-22 12:01] LABS: Band 35 % (5-11); Lymphocytes 5 % (21-51); MDiff Complete? YES; Monocytes 5 % (0-10); Neutrophil 55 % (42-75); RBC Morphology Normal
[2018-01-22 12:04] LABS: Bacteria/HPF 4+ HPF (None Seen); Squamous Epithelial 0-3 HPF (0-3)
[2018-01-22 12:07] LABS: Pathc Cast-AUWi Flag 3.26 (0-2.49)
--- NOTE | 2018-01-22 12:12 | RAD ---
RADIOGRAPH CHEST 1 VIEW: HISTORY: An 87-year-old female with fever and chronic cough. FINDINGS: The thoracic aorta is tortuous and ectatic. There is no evidence of air space density, pneumothorax, or pulmonary edema. The lateral costophrenic angles are sharp. IMPRESSION: 1) No acute pulmonary findings. 2) Ectasia and tortuosity of thoracic aorta. jn [] POS: [facility]
[2018-01-22 12:16] LABS: RBC/HPF 0-3 HPF (0-3); Yeast-All Forms None Seen HPF (None Seen)
[2018-01-22 12:17] LABS: Hyaline Casts/LPF 0-3 HYALINE CAST LPF (0-3 Hyaline); Manual Microscopic Reviewed? No Path Casts Seen
[2018-01-22] MEDS ORDERED: cefTRIAXone\\ROCEPHIN 1 GM VIAL ONE (12:43)
[2018-01-22] MEDS ORDERED: metroNIDAZOLE 500 MG/100 ML BAG ONE (13:31)
--- NOTE | 2018-01-22 14:17 | CT ---
ABDOMEN CT WITH CONTRAST PELVIC CT WITH CONTRAST: HISTORY: Pain. Fever. Foul-smelling urine. COMPARISON: 09/14/12. TECHNIQUE: An abdomen and pelvic CT is performed with IV contrast. Enteric contrast is not administered. Hoffman l reformatted images are submitted for interpretation. FINDINGS: Chronic changes of the lung bases. Heart is enlarged. There appears to be calcification of the mitr al annulus. There is coronary artery calcification. Atherosclerosis of a nonaneurysmal aorta. Ther e appears to be short-segment moderate narrowing of the infrarenal abdominal aorta secondary to ather osclerotic disease. Symmetric attenuation of the psoas muscles. The portal vein is patent. Unremarkable gallbladder. Liver, spleen, and pancreas have appropriate attenuation. Questionable 3 mm hypodense lesion in the proximal body of the pancreas. Fullness of the left adrenal gland is incompletely evaluated, measuring 0.9 x 0.9 cm. The finding is similar to the previous exam. The previously noted exophytic cyst in the upper pole of the right kidney is not appreciated. Smalle r cyst is suggested. There appears to be symmetric enhancement of the kidneys. Bilaterally, no obst ructive uropathy. No gastrohepatic, retrocrural, or periportal lymphadenopathy. Limited evaluation of the alimentary canal by lack of oral contrast. There does appear to be some mi ld mucosal prominence involving some proximal mid small bowel loops. No evidence of small bowel obst ruction. Ileocecal junction is normal. Scattered fecal material in a nondistended, nondilated colon . Occasional diverticulum. Normal-caliber appendix. PELVIC CT: Nonspecific free fluid in the pelvis. Uterus and adnexal structures are unremarkable. Unremarkable urinary bladder. Fluid in the pelvis is adjacent to the sigmoid colon where there is subtle pericolo morgan fat stranding and subtle mucosal thickening. The possibility of a sigmoid colon diverticulitis c annot be excluded. No evidence of perforation or abscess. No lytic or blastic lesion in osseous structures. IMPRESSION: 1. Diverticulosis in the sigmoid colon with possible diverticulitis. Correlate clinically. 2. Normal caliber appendix. 3. Mild mucosal prominence involving proximal to mid small bowel loops. Correlate for enteritis. POS: [facility]
--- NOTE | 2018-01-22 14:18 | PDOC.FPRHP ---
- History of Present Illness Chief Complaint: Diarrhea History of Present Illness: Mrs Kaur is a 87yo female with pmh of dementia, ulcerative colitis, Mitral and Aortic valve replacement. History provided by . Nausea, vomiting loose stools 2 days. Temp 101 at home. Decreased oral intake over last 3 days. Not short of breath. Denies melena, blood in stool. Recently admitted approx. 1 month ago with UTI, treated with ceftriaxone. Takes Azathiaprine, mesalimine for UC. ED Course: Flagyl 500mg, rocephin 1g, NS 1L - Allergies/Adverse Reactions Allergies Allergy/AdvReac Type Severity Reaction Status Date / Time levofloxacin [From Levaquin] Allergy Unknown Nausea Verified 04/17/16 23:29 morphine Allergy Unknown Nausea Verified 01/22/18 16:17 - Home Medications Medication Instructions Recorded Confirmed Type Atorvastatin Calcium [Lipitor] 80 mg PO HS 10/29/15 01/22/18 History Multivit with Iron,Minerals 1 tablet PO DAILY 10/29/15 01/22/18 History [[facility]] azaTHIOprine 50 mg PO QAM 10/29/15 01/22/18 History Mesalamine [Delzicol] 800 mg PO BID 11/02/15 01/22/18 History Calcium Carbonate/Vitamin D3 2 tablet PO DAILY 11/28/15 01/22/18 History [Calcium 600 + Vitamin D] azaTHIOprine [Imuran] 50 mg PO HS 11/28/15 01/22/18 History Aspirin [Low Dose Aspirin EC] 81 mg PO DAILY 02/05/16 01/22/18 History Ascorbic Acid [Vitamin C Chewable 500 mg PO DAILY 04/17/16 01/22/18 History Tablet] Celecoxib 200 g PO DAILY 12/25/17 01/22/18 History Cetirizine HCl [Zyrtec] 10 mg PO DAILY 12/25/17 01/22/18 History Donepezil HCl 10 mg PO DAILY 12/25/17 01/22/18 History Estradiol [Estrace 0.01% Vaginal 1 applic VAG Q7D 12/25/17 01/22/18 History Cream] Metoprolol Succinate [Toprol Xl] 50 mg PO BID 12/25/17 01/22/18 History Mirabegron [Myrbetriq] 50 mg PO DAILY 12/25/17 01/22/18 History Calcium Carbonate + Vit D 2 tab PO DAILY tab 12/26/17 01/22/18 Rx [Caltrate 600 + Vit D] Cephalexin [Keflex] 500 mg PO Q12H 3 Days #6 capsule 12/26/17 01/22/18 Rx - History PMHx: Dementia, UC, HTN, HLD, PSHx: Aortic and Mitral valve replacement. b/l knee replacement, cataract, benign cyst @ L5. FHx: Mother- CVA Father- CAD, [place] CABG x3 Social: Lives with , relies on him for ADLs. No tobacco or drug use. Smoked 4 cigarettes/day (30 years) until 1992. Drinks 1oz rum per day. - Review of Systems General: reports: fever/chills, weight/appetite/sleep changes Eyes: denies: eye pain ENT: reports: nasal congestion (chronic), rhinorrhea (chronic) Respiratory: reports: congestion. denies: cough, shortness of breath Cardiovascular: denies: palpitation Gastrointestinal: reports: nausea, vomiting, diarrhea. denies: constipation Genitourinary: reports: dysuria, other (denies hematuria) Skin: denies: rashes, lesions Musculoskeletal: reports: pain, tenderness, stiffness, arthritis/arthralgias Neurological: denies: numbness, weakness - Vital signs BP: 106/72 HR: 84 RR: 18 Tmax: 97.4 Pox: 99% on RA Wt: 81.19kg - Physical Exam Constitutional: NAD, well developed -Constitutional: Alert, oriented to person, and time HEENT: normocephalic and atraumatic, PERRLA, conjunctiva clear, normal nasal mucosa, MMM, oropharynx clear Neck: supple, trachea midline, no JVD, no bruits Heart: RRR, pulses present, no edema -Heart: systolic murmur present Lungs: CTAB, no wheezing Abdomen: soft, bowel sounds present -Abdomen: Tender to palpation in LLQ and suprapubic Musculoskeletal: normal structure -Neurological: 5/5 UE & LE strength Skin: capillary refill <2 seconds Psychiatric: normal mood and affect, good judgment and insight FMR H&P: Results - Labs Result Diagrams: 01/23/18 04:26 01/23/18 04:26 Lab results: WBC 10.4 thou/uL (4.8-10.8) 01/22/18 11:02 Hgb 13.3 g/dL (12.0-16.0) 01/22/18 11:02 Hct 40.0 % (36.0-47.0) 01/22/18 11:02 MCV 93.4 fL (78.0-98.0) 01/22/18 11:02 Plt Count 126 thou/uL (130-400) L 01/22/18 11:02 Band Neuts % (Manual) 35 % (5-11) H 01/22/18 11:02 Sodium 134 mmol/L (136-145) L 01/22/18 11:02 Potassium 3.8 mmol/L (3.5-5.1) 01/22/18 11:02 Chloride 100 mmol/L (98-107) 01/22/18 11:02 Carbon Dioxide 24 mmol/L (23-31) 01/22/18 11:02 BUN 20 mg/dL (9.8-20.1) 01/22/18 11:02 Creatinine 0.79 mg/dL (0.6-1.1) 01/22/18 11:02 Glucose 130 mg/dL (83-110) H 01/22/18 11:02 Lactic Acid 1.0 mmol/L (0.5-2.2) 01/22/18 11:02 Calcium 9.0 mg/dL (7.8-10.44) 01/22/18 11:02 Total Bilirubin 1.3 mg/dL (0.2-1.2) H 01/22/18 11:02 AST 41 U/L (5-34) H 01/22/18 11:02 ALT 30 U/L (8-55) 01/22/18 11:02 Alkaline Phosphatase 120 U/L (40-150) 01/22/18 11:02 CK-MB (CK-2) 0.7 ng/mL (0-6.6) 01/22/18 11:02 B-Natriuretic Peptide 558.9 pg/mL (0-100) H 01/22/18 11:02 Serum Total Protein 6.3 g/dL (6.0-8.3) 01/22/18 11:02 Albumin 3.6 g/dL (3.4-4.8) 01/22/18 11:02 Lipase 7 U/L (8-78) L 01/22/18 11:02 Urine Ketones Trace mg/dL (Negative) H 01/22/18 11:38 Urine Blood Negative (Negative) 01/22/18 11:38 Urine Nitrite Negative (Negative) 01/22/18 11:38 Ur Leukocyte Esterase Large (Negative) H 01/22/18 11:38 Urine RBC 0-3 HPF (0-3) 01/22/18 11:38 Urine WBC Greater Than 50-TNTC HPF (0-3) H 01/22/18 11:38 Ur Squamous Epith Cells 0-3 HPF (0-3) 01/22/18 11:38 Urine Bacteria 4+ HPF (None Seen) H 01/22/18 11:38 - EKG Interpretation EK lead EKG interpreted by Emergency Department Physician at time of study, 12 lead EKG shows, Rate (beats per minute): 92, with premature atrial complexes, Interpretation:, cannot rule out inferior infarct, age undetermined, Conduction with, complete right bundle branch block, ST segments normal, T waves normal, [place] normal. - Radiology Interpretation CT scan - abdomen Status: image reviewed by me, report reviewed by me Additional comment: divertiulosis in sigmoid colon with possible diverticulitis. Mild mucosal prominence involving proximal to mid small bowel loops Chest x-ray Status: report reviewed by me Additional comment: No acute cpulmonary findings. Ectasia and tortuosity of thoracic aorta. FMR H&P: A/P - Problem List (1) Diverticulitis Current Visit: Yes Status: Acute Code(s): K57.92 - DVTRCLI OF INTEST, PART UNSP, W/O PERF OR ABSCESS W/O BLEED (2) Elevated brain natriuretic peptide (BNP) level Current Visit: Yes Status: Acute Code(s): R79.89 - OTHER SPECIFIED ABNORMAL FINDINGS OF BLOOD CHEMISTRY (3) UTI (urinary tract infection) Current Visit: No Status: Acute (4) Valvular disease Current Visit: No Status: Acute (5) HLD (hyperlipidemia) Current Visit: No Status: Chronic Code(s): E78.5 - HYPERLIPIDEMIA, UNSPECIFIED (6) HTN (hypertension) Current Visit: No Status: Chronic Code(s): I10 - ESSENTIAL (PRIMARY) HYPERTENSION Qualifiers: Hypertension type: essential hypertension Qualified Code(s): I10 - Essential (primary) hypertension (7) History of atrial fibrillation Current Visit: No Status: Chronic Code(s): Z86.79 - PERSONAL HISTORY OF OTHER DISEASES OF THE CIRCULATORY SYSTEM (8) Ulcerative (chronic) enterocolitis Current Visit: No Status: Chronic Code(s): K51.00 - ULCERATIVE (CHRONIC) PANCOLITIS WITHOUT COMPLICATIONS Qualifiers: Digestive disease complication type: without complication Qualified Code(s) : K51.00 - Ulcerative (chronic) pancolitis without complications - Plan Diverticulitis - Continue Ceftriaxone and Flagyl (Pt quinolone allergic) - gentle IVF LR@100, plan to d/c in AM - Blood cxs pending - Will admit to medical UTI - Recently treated for UTI with rocephin (12/25/17) - Ucx pending - being treated for diverticulitis as above with Ceftriaxone and flagyl - Last Ucx with Ecoli sensitive to Ceftriaxone - Continue to monitor urine output HTN - continue home metoprolol, ASA Dementia - baseline dementia that has been diagnosed >1yr ago - patient oriented to person and time Hx of atrial fibrillation - Currently NSR HLD - continue home atorvastatin UC - continue home azathioprine, mesalimine Hx of breast cancer - s/p R mastectomy in 1980s FMR H&P: Upper Level - Pertinent history 87 yo F with 3-4 days hx of decreased oral intake and general malaise. She has significant dementia and most hx came from . He states that her symptoms include increased urinary frequency, decreased PO intake, and most recently abdominal pain and lose bowel movements. He denies fever, chills, n/v. She has recently been treated for a UTI. - Pertinent findings Vitals BP 102/68 HR 98 O2 sat 92% on RA RR 19 Temp 98.5 Lab WBC 13.3 BNP 558 Urine WBC TNTC Urine pedro 4+ Urine Nitrite negative CT abd/pelv - possible diverticulitis and enteritis CXR NAD PE General A&O x2, no acute distress HEENT normocephalic, atraumatic. EOMI, PERRLA CV RRR, no murmur Chest CTA b/l Abd Suprapubic, LLQ and RLQ tenderness. BS x4 - Plan Date/Time: 01/22/18 1417 I, Sudheer Pulvino DO, have evaluated this patient and agree with findings/plan as outlined by technical support internship resident. Pertinent changes/additions are listed here. Diverticulitis - due to pt allergy to floroquinalones, will treat with rocephin and flagyl - PO intake as tolerated - Monitor vitals and I/O UTI - covered by rocephin - cultures pending HTN - continue home metoprolol, ASA Dementia - at baseline Hx of atrial fibrillation - Currently NSR HLD - continue home statin UC - continue home azathioprine, mesalimine Dispo: pt is currently stable. Monitor on medical floor. Likely LOS >48 hours Attending Addendum - Attending Addendum Date/Time: 01/23/18 0953. Seen and examined on day of admission 01/22. I personally evaluated the patient and discussed the management with Dr. Peres and Danilo. I agree with and repeated the History, Examination, Assessment and Plan documented above with any addition or exceptions noted below. NAD, resting comfortably and interactive. Mild suprapubic TTP, no CVAT. Antibiotics for UTI. Expect distal colon thickening change 2/2 lonstanding UC, would consider completing just 4-7 days anaerobic coverage just in case mild diverticulitis. Hopeful d/c in AM.
[2018-01-22 16:20] VITALS: BMI 27.9
[2018-01-22] MEDS: Lactated Ringer's 1,000 ML IV SCH (16:57)
[2018-01-22] MEDS: Mesalamine DR 400 mg Capsule PO SCH (20:53)
[2018-01-22] MEDS ORDERED: Atorvastatin Calcium 40 MG TAB PO SCH (21:00)
[2018-01-22] MEDS ORDERED: azaTHIOprine 50 MG TAB PO SCH (21:00)
[2018-01-23] MEDS: Lactated Ringer's 1,000 ML IV SCH (00:12)
[2018-01-23 04:57] LABS: Anion Gap 11 mmol/L (10-20); BUN (Urea Nitrogen) 16 mg/dL (9.8-20.1); Calc. Creatinine Clearance 78 mL/min (70-130); Calcium 8.9 mg/dL (7.8-10.44); Carbon Dioxide 25 mmol/L (23-31); Chloride 103 mmol/L (98-107); Estimated GFR-MDRD 86; Glucose 111 mg/dL (83-110); Potassium 3.8 mmol/L (3.5-5.1); Sodium 135 mmol/L (136-145)
[2018-01-23 04:58] LABS: #Lymphocytes 0.6 thou/uL (1.20-3.40); #Monocytes 1.2 thou/uL (0.11-0.59); #Neutrophils 8.4 thou/uL (1.40-6.50); %Eosinophils 0.3 % (0.0-10.0); %Lymphocytes 5.8 % (21.0-51.0); %Monocytes 11.6 % (0.0-10.0); %Neutrophils 82.3 % (42.0-75.0); Hemoglobin 12.2 g/dL (12.0-16.0); Mean Corpuscular HGB CONC 32.7 g/dL (32.0-36.0); Mean Corpuscular Hemoglobin 30.7 pg (27.0-31.0); Mean Corpuscular Volume 93.9 fL (78.0-98.0); Mean Platelet Volume 8.5 fL (7.4-10.4); Platelet Count 116 thou/uL (130-400); RBC Distribution Width 13.5 % (11.5-14.5); Red Blood Cell (RBC) Count 3.98 mill/uL (4.20-5.40); White Blood Cell (WBC) Count 10.2 thou/uL (4.8-10.8)
--- NOTE | 2018-01-23 05:55 | PDOC.FM ---
- Subjective Subjective: No overnight events. Denies pain, nausea, diarrhea, SOB. Is eating breakfast and reports good appetite. No questions or concerns at this time. - Objective MAR Reviewed: Yes Vital Signs & Weight: Vital Signs (12 hours) Temp Pulse Resp BP Pulse Ox 01/22/18 20:55 92 L 01/22/18 20:00 97.4 F L 90 16 109/70 92 L Weight Weight 81 kg Result Diagrams: 01/23/18 04:26 01/23/18 04:26 Phys Exam - Physical Examination Constitutional: NAD eating breakfast Neck: supple Respiratory: no wheezing, clear to auscultation bilateral Cardiovascular: RRR murmur present Gastrointestinal: soft, non-tender, positive bowel sounds Musculoskeletal: no edema Psychiatric: normal affect Deviation from normal: alert and oriented to person and place, did not ask time Dx/Plan (1) Diverticulitis Code(s): K57.92 - DVTRCLI OF INTEST, PART UNSP, W/O PERF OR ABSCESS W/O BLEED Status: Acute (2) Elevated brain natriuretic peptide (BNP) level Code(s): R79.89 - OTHER SPECIFIED ABNORMAL FINDINGS OF BLOOD CHEMISTRY Status : Acute (3) UTI (urinary tract infection) Status: Acute (4) Valvular disease Status: Acute (5) HLD (hyperlipidemia) Code(s): E78.5 - HYPERLIPIDEMIA, UNSPECIFIED Status: Chronic (6) HTN (hypertension) Code(s): I10 - ESSENTIAL (PRIMARY) HYPERTENSION Status: Chronic Qualifiers: Hypertension type: essential hypertension Qualified Code(s): I10 - Essential (primary) hypertension (7) History of atrial fibrillation Code(s): Z86.79 - PERSONAL HISTORY OF OTHER DISEASES OF THE CIRCULATORY SYSTEM Status: Chronic (8) Ulcerative (chronic) enterocolitis Code(s): K51.00 - ULCERATIVE (CHRONIC) PANCOLITIS WITHOUT COMPLICATIONS Status : Chronic Qualifiers: Digestive disease complication type: without complication Qualified Code(s) : K51.00 - Ulcerative (chronic) pancolitis without complications - Plan Plan: Diverticulitis - Will discharge pt with PO antibiotics - D/c fluids - Blood cxs pending UTI - Recently treated for UTI with rocephin (12/25/17) - Ucx presumptive E coli, awaiting sensitivities - Last Ucx with Ecoli sensitive to Ceftriaxone - Pt and would like to go home and be called with final sensitivities. Will plan to d/c with oral antibiotics and f/u with them once sensitives result. Will base PO antibiotics off recent UTI cx results - Continue to monitor urine output HTN - continue home metoprolol, ASA Dementia - baseline dementia that has been diagnosed >1yr ago - patient oriented to person and time Hx of atrial fibrillation - Currently NSR HLD - continue home atorvastatin UC - continue home azathioprine, mesalimine Hx of breast cancer - s/p R mastectomy in
[2018-01-23] MEDS ORDERED: Calcium Carbonate + Vit D 1 TAB PO SCH ×2 (09:00)
[2018-01-23] MEDS ORDERED: Ascorbic Acid 500 mg Chewable Tablet PO SCH (09:00)
[2018-01-23] MEDS ORDERED: Cetirizine HCl 10 MG TAB PO SCH (09:00)
[2018-01-23] MEDS ORDERED: Loratadine 10 MG TAB PO SCH (09:00)
[2018-01-23] MEDS ORDERED: azaTHIOprine 50 MG TAB PO SCH (09:00)
[2018-01-23] MEDS ORDERED: Aspirin 81 mg Enteric Coated Tablet PO SCH (09:00)
[2018-01-23] MEDS ORDERED: Multivitamin W/ Minerals 1 TAB PO SCH (09:00)
[2018-01-23] MEDS ORDERED: Donepezil HCl 10 MG TAB PO SCH (09:00)
[2018-01-23] MEDS ORDERED: metroNIDAZOLE 500 MG TAB PO SCH (09:00)
[2018-01-23] MEDS ORDERED: CeleCOXIB 100 MG CAP PO SCH (09:00)
[2018-01-23] MEDS ORDERED: Enoxaparin Sodium 40 MG/0.4 ML SYRINGE SC SCH (09:00)
[2018-01-23] MEDS: Mesalamine DR 400 mg Capsule PO SCH (09:15)
[2018-01-23] MEDS ORDERED: cefTRIAXone\\ROCEPHIN 1 GM in Sodium Chloride 0.9% 100 ML IVPB SCH (13:00)
--- NOTE | 2018-01-23 13:09 | ADD-PRG ---
ADDENDUM This is an addendum to the note of Dr. Ada Carrasco. SUBJECTIVE: Ms. Kaur is a pleasant 87-year-old white female with history of dementia who was admit anu with acute diverticulitis. Already this morning, she looks and feels much better. VITAL SIGNS: She is afebrile, pulse is 90, respirations 16, blood pressure 125/75 and her room air O 2 sats are 92%. She and her are anxious for discharge. We will discharge her later this afternoon if she brayden erates her diet and continue treatment with p.o. antibiotics. She will follow up in our clinic in 3- 5 days.
[2018-01-23 13:52] VITALS: BP 105/68; TEMP 97.8
[2018-01-23] MEDS ORDERED: Estradiol 0.01% Vaginal Cream 42.5 gm Tube VAG SCH (21:00)
--- NOTE | 2018-01-24 02:39 | DIS-2 ---
DATE OF ADMISSION: 01/22/2018 DATE OF DISCHARGE: 01/23/2018 RESIDENT: Ada Carrasco MD, PGY1 ADMITTING ATTENDING: David Ma MD DISCHARGE ATTENDING: David Ma MD CONSULTATIONS: None. PROCEDURES: 1. Abdominal pelvic CT showing diverticulosis in the sigmoid colon with possible diverticulitis. Normal-caliber appendix. Mild mucosal prominence involving [id number] small bowel loops. 2. Chest x-ray, no acute pulmonary findings. Ectasia and tortuosity of thoracic aorta. PRIMARY DIAGNOSES: 1. Diverticulitis. 2. Urinary tract infection. SECONDARY DIAGNOSES: 1. Hypertension. 2. Dementia. 3. History of atrial fibrillation. 4. Hyperlipidemia. 5. Ulcerative colitis. 6. History of breast cancer. DISCHARGE MEDICATIONS: 1. Vitamin C 500 mg daily. 2. Aspirin 81 mg daily. 3. Atorvastatin 80 mg at bedtime. 4. Azathioprine 50 mg q.a.m. 5. Calcium and vitamin D, 2 tabs daily. 6. Cefixime 400mg daily for 9 days (new). 7. Zyrtec 10 mg daily. 8. Cranberry tablet daily (new). 9. Donepezil 10 mg daily. 10. Estradiol. 11. Mesalamine 800 mg b.i.d. 12. Metoprolol 50 mg b.i.d. 13. Flagyl 500 mg b.i.d. for 9 days (new). 14. Mirabegron 50 mg daily. 15. Multivitamin daily. 16. Bactrim DS 1 tab b.i.d. for 9 days (new). DISCONTINUED MEDICATIONS: None. HISTORY OF PRESENT ILLNESS AND HOSPITAL COURSE: Ms. Kaur is an 87-year-old female who presented with 2 days of diarrhea and decreased p.o. intake, found to have diverticulitis on abdominal CT and UTI by UA. She was recently admitted and found to have a UTI on previous admission that grew out E. coli resistant to Bactrim and ampicillin. The patient's UTI was treated with ceftriaxone. She did not have abdominal pain at the time of admission. Symptoms improved with IV fluids and antibiotics. Family felt ready to go home on oral antibiotics. Therefore, she was discharged the next day. For her chronic medical conditions of hypertension, dementia, hyperlipidemia, UC her home medications were continued. She has a history of atrial fibrillation, but was in normal sinus rhythm throughout her hospitalization. DISPOSITION: Stable. DISCHARGE INSTRUCTIONS: 1. Location: Home. 2. Diet: Low sodium. 3. Activity: No restrictions. 4. Follow up with PCP within 3-7 days. LINDY
== END 2018-01-23 14:34 | disposition home or self-care (01) | DRG 392 ==
LOC: ERS 09:44 → T4-A 16:17
PROVIDERS: ADMIT Family Medicine; ATTEND Family Medicine
DX: K57.32 Diverticulitis of large intestine without perforation or abscess without bleeding (principal); N39.0 Urinary tract infection, site not specified; K51.00 Ulcerative (chronic) pancolitis without complications; F03.90 Unspecified dementia, unspecified severity, without behavioral disturbance, psychotic disturbance, mood disturbance, and anxiety; I10 Essential (primary) hypertension; E78.5 Hyperlipidemia, unspecified; R79.89 Other specified abnormal findings of blood chemistry; Z85.3 Personal history of malignant neoplasm of breast; Z90.11 Acquired absence of right breast and nipple; Z96.653 Presence of artificial knee joint, bilateral; Z95.2 Presence of prosthetic heart valve; Z82.3 Family history of stroke; Z83.1 Family history of other infectious and parasitic diseases
CPT/HCPCS: 36415; 71045; 74177; 80048; 80053; 81003; 81015; 82553; 83605; 83690; 83880; 84484; 85025; 87040; 87077; 87086; 87186; 93005; J0696; J1650; J7050; J7500

== ENCOUNTER 2018-02-01 10:19 | Day surgery (SDC) | payer MEDICARE, OTHER ==
[2018-01-31 16:02] VITALS: BMI 28.1
[2018-02-01] MEDS ORDERED: PROPOFOL 200 MG/20 ML VIAL ONE (11:39)
[2018-02-01] MEDS ORDERED: PROPOFOL 20 ML ONE (12:01)
--- NOTE | 2018-02-01 23:43 | ECHO ---
The patient is an 86-year-old, 63-year-old woman with paroxysmal atrial fibrillation. DESCRIPTION OF PROCEDURE: The patient taken to the PACU, the patient sedated by anesthesiology. The transesophageal probe was p laced in the distal esophagus and stomach. Echocardiographic images were obtained. FINDINGS: 1. Normal left ventricular systolic function. 2. Biatrial enlargement. 3. Normal functioning prosthetic mitral valve. 4. Normal functioning prosthetic aortic valve. 5. Spontaneous contrast was noted throughout the left atrium. No formed thrombus is noted in the le ft atrium. 6. The left atrial appendage is oversewn. 7. Atherosclerotic debris in the descending aorta. IMPRESSION: No formed thrombus in the left atrium.
== END 2018-02-01 13:25 | disposition home or self-care (01) ==
LOC: CCL 10:19
PROVIDERS: ATTEND Internal Medicine Cardiovascular Disease
PROC: B24BZZ4 Ultrasonography of Heart with Aorta, Transesophageal (ICD-10-PCS; principal; 2018-02-01)
DX: I48.0 Paroxysmal atrial fibrillation (principal); I70.0 Atherosclerosis of aorta; E78.5 Hyperlipidemia, unspecified; E78.00 Pure hypercholesterolemia, unspecified; I11.0 Hypertensive heart disease with heart failure; I50.33 Acute on chronic diastolic (congestive) heart failure; Z79.01 Long term (current) use of anticoagulants; Z79.82 Long term (current) use of aspirin; Z79.899 Other long term (current) drug therapy; Z87.891 Personal history of nicotine dependence; Z88.1 Allergy status to other antibiotic agents; Z88.5 Allergy status to narcotic agent; Z95.2 Presence of prosthetic heart valve
CPT/HCPCS: 92960; 93005; 93010; 93312; J2704

== ENCOUNTER 2018-02-08 09:32 | Emergency (ER) | payer MEDICARE, OTHER ==
[2018-02-08 10:54] LABS: #Eosinphils 0.1 thou/uL (0.0-0.7); #Lymphocytes 0.6 thou/uL (1.20-3.40); #Monocytes 1.1 thou/uL (0.11-0.59); #Neutrophils 7.5 thou/uL (1.40-6.50); %Basophils 0.5 % (0.0-1.0); %Eosinophils 0.6 % (0.0-10.0); %Lymphocytes 6.2 % (21.0-51.0); %Monocytes 11.6 % (0.0-10.0); %Neutrophils 81.1 % (42.0-75.0); Hemoglobin 12.9 g/dL (12.0-16.0); Mean Corpuscular HGB CONC 32.2 g/dL (32.0-36.0); Mean Corpuscular Hemoglobin 30.3 pg (27.0-31.0); Mean Corpuscular Volume 94.1 fL (78.0-98.0); Mean Platelet Volume 7.6 fL (7.4-10.4); Platelet Count 220 thou/uL (130-400); RBC Distribution Width 13.8 % (11.5-14.5); Red Blood Cell (RBC) Count 4.25 mill/uL (4.20-5.40); White Blood Cell (WBC) Count 9.3 thou/uL (4.8-10.8)
[2018-02-08 11:04] LABS: INR-International Normal Ratio 1.3; PTT 31.2 SEC (22.9-36.1); Prothrombin Time 16.3 SEC (12.0-14.7)
[2018-02-08 11:18] LABS: ALT (SGPT) 13 U/L (8-55); AST (SGOT) 22 U/L (5-34); Albumin 3.9 g/dL (3.4-4.8); Alkaline Phosphatase 74 U/L (40-150); Anion Gap 11 mmol/L (10-20); BUN (Urea Nitrogen) 16 mg/dL (9.8-20.1); Bilirubin, Total 0.6 mg/dL (0.2-1.2); Calc. Creatinine Clearance 0 mL/min (70-130); Calcium 9.6 mg/dL (7.8-10.44); Carbon Dioxide 29 mmol/L (23-31); Chloride 103 mmol/L (98-107); Estimated GFR-MDRD 74; Globulin 2.5 g/dL (2.4-3.5); Glucose 93 mg/dL (83-110); Magnesium 2.1 mg/dL (1.6-2.6); Potassium 4.2 mmol/L (3.5-5.1); Protein, Total 6.4 g/dL (6.0-8.3); Sodium 139 mmol/L (136-145)
--- NOTE | 2018-02-08 11:19 | RAD ---
RIGHT ANKLE 3 VIEWS: HISTORY: Pain. Fall. Trauma. COMPARISON: None. FINDINGS: There is an osseous structure adjacent to the medial malleolus. There is a coronal oblique fracture through the distal fibula through the syndesmosis. Extensive bimalleolar soft tissue swelling. Mild vascular calcifications. IMPRESSION: 1. Law B distal fibular fracture. 2. Avulsion of the flexor retinaculum of the medial malleolus. POS: [facility]
[2018-02-08 12:16] LABS: Bilirubin Negative (Negative); Blood, Urine Negative (Negative); Clarity CLEAR (Clear); Glucose, Urine (Dipstick) Negative (Negative); Leukocyte Trace (Negative); Nitrite Negative (Negative); Protein, Urine (Dipstick) Negative (Neg-Trace); Specific Gravity, Urine 1.005 (1.002-1.036); Urobilinogen 0.2 mg/dL (0.2-1.0)
[2018-02-08 12:17] LABS: Bacteria/HPF None Seen HPF (None Seen); Hyaline Casts/LPF 0-3 HYALINE CAST LPF (0-3 Hyaline); Pathc Cast-AUWi Flag 0.14 (0-2.49); RBC/HPF 0-3 HPF (0-3); Squamous Epithelial 0-3 HPF (0-3); WBC/HPF 0-3 HPF (0-3)
[2018-02-08] MEDS ORDERED: HYDROcodone/Acetaminophen 5/325 mg Tablet ONE (13:12)
--- NOTE | 2018-02-10 08:30 | EKG ---
Test Reason : Blood Pressure : / mmHG Vent. Rate : 073 BPM Atrial Rate : 073 BPM P-R Int : 280 ms QRS Dur : 144 ms QT Int : 422 ms P-R-T Axes : 082 087 016 degrees QTc Int : 464 ms Sinus rhythm with 1st degree A-V block with Premature supraventricular complexes Right bundle branch block Abnormal ECG Confirmed by TAWANA KANG ([id number]) on 02/10/2018 8:30:02 AM Referred By: Confirmed By:TAWANA KANG
== END 2018-02-08 14:31 | disposition home or self-care (01) ==
LOC: ERS 09:32
DX: S82.51XA Displaced fracture of medial malleolus of right tibia, initial encounter for closed fracture (principal); S82.831A Other fracture of upper and lower end of right fibula, initial encounter for closed fracture; I34.1 Nonrheumatic mitral (valve) prolapse; E78.5 Hyperlipidemia, unspecified; I10 Essential (primary) hypertension; Z86.73 Personal history of transient ischemic attack (TIA), and cerebral infarction without residual deficits; I48.91 Unspecified atrial fibrillation; Z79.899 Other long term (current) drug therapy; Z79.82 Long term (current) use of aspirin; W19.XXXA Unspecified fall, initial encounter
CPT/HCPCS: 36415; 80053; 81003; 81015; 83735; 85025; 85610; 85730; 93005

== ENCOUNTER 2018-02-21 16:34 | Emergency (ER) | payer MEDICARE, OTHER ==
[2018-02-21] MEDS ORDERED: Albuterol Sulfate 2.5 mg/0.5 ml Neb ONE (17:39)
[2018-02-21 17:52] LABS: #Eosinphils 0.2 thou/uL (0.0-0.7); #Lymphocytes 0.7 thou/uL (1.20-3.40); #Neutrophils 5.4 thou/uL (1.40-6.50); %Eosinophils 2.4 % (0.0-10.0); %Lymphocytes 9.1 % (21.0-51.0); %Monocytes 14.4 % (0.0-10.0); %Neutrophils 74.1 % (42.0-75.0); Mean Corpuscular Hemoglobin 30.9 pg (27.0-31.0); Mean Corpuscular Volume 93.5 fL (78.0-98.0); Mean Platelet Volume 7.9 fL (7.4-10.4); Platelet Count 204 thou/uL (130-400); RBC Distribution Width 14.4 % (11.5-14.5); Red Blood Cell (RBC) Count 3.87 mill/uL (4.20-5.40); White Blood Cell (WBC) Count 7.3 thou/uL (4.8-10.8)
[2018-02-21 18:21] LABS: ALT (SGPT) 8 U/L (8-55); AST (SGOT) 16 U/L (5-34); Albumin 3.7 g/dL (3.4-4.8); Alkaline Phosphatase 75 U/L (40-150); Anion Gap 12 mmol/L (10-20); BUN (Urea Nitrogen) 21 mg/dL (9.8-20.1); Bilirubin, Total 0.4 mg/dL (0.2-1.2); Calc. Creatinine Clearance 0 mL/min (70-130); Calcium 9.4 mg/dL (7.8-10.44); Carbon Dioxide 30 mmol/L (23-31); Chloride 100 mmol/L (98-107); Estimated GFR-MDRD 60; Globulin 2.6 g/dL (2.4-3.5); Glucose 104 mg/dL (83-110); Potassium 4.3 mmol/L (3.5-5.1); Protein, Total 6.3 g/dL (6.0-8.3); Sodium 138 mmol/L (136-145)
--- NOTE | 2018-02-21 20:53 | RAD ---
CHEST TWO VIEWS: 02/21/18 HISTORY: Cough. COMPARISON: 04/15/16. FINDINGS: There are sternotomy wires and atherosclerosis of the aorta. Heart is enlarged. Lung are hyperinflate d. No consolidation or mass. There is no pneumothorax or acute osseous abnormalities. There are chron ic changes involving the right shoulder. Degenerative changes of the thoracic spine are noted with wh at appears to be rightward curvature of the thoracolumbar junction. Possible compensatory leftward cu rvature of the upper thoracic spine. Calcification of the mitral annulus is noted. IMPRESSION: 1. Atherosclerosis. 2. No acute cardiopulmonary process. POS: [facility]
== END 2018-02-21 19:03 | disposition home or self-care (01) ==
LOC: ERS 16:34
DX: R05 Cough (principal); I34.1 Nonrheumatic mitral (valve) prolapse; E78.5 Hyperlipidemia, unspecified; I10 Essential (primary) hypertension; Z86.73 Personal history of transient ischemic attack (TIA), and cerebral infarction without residual deficits; Z79.899 Other long term (current) drug therapy; Z79.82 Long term (current) use of aspirin
CPT/HCPCS: 36415; 71046; 80053; 85025; 87040; 94640; J7611

== ENCOUNTER 2018-08-14 11:03 | Outpatient (CLI) | payer MEDICARE, OTHER ==
--- NOTE | 2018-08-15 08:40 | MMO ---
Bilateral MAMMO Bilat Screen [facility]. CLINICAL HISTORY: Patient is 88 years old and is seen for screening. The patient has no family history of breast cancer. The patient has a history of right Mastectomy in 1979, left Excisional Biopsy in 1981 - negative and right Mastectomy - 1. VIEWS: The views performed were: left craniocaudal with tomosynthesis; left mediolateral oblique; and left mediolateral oblique with tomosynthesis. FILMS COMPARED: The present examination has been compared to prior imaging studies performed at [facility] on 07/03/2003, 08/29/2004, 12/06/2005, 01/17/2007, 02/16/2009, 02/18/2010, 02/20/2011, 02/20/2012, 02/20/2013, 03/30/2014, 06/08/2015, 08/15/2016 and 08/13/2017, and at [facility] on 06/05/1997, 12/31/1998, 02/15/2000 and 03/12/2002. MAMMOGRAM FINDINGS: The breast is heterogeneously dense, which could obscure a lesion on mammography. There are vascular calcifications seen in the left breast. There are no suspicious masses, suspicious calcifications, or new areas of architectural distortion. IMPRESSION: THERE IS NO MAMMOGRAPHIC EVIDENCE OF MALIGNANCY. A ROUTINE FOLLOW-UP MAMMOGRAM IN 1 YEAR IS RECOMMENDED. THE RESULTS OF THIS EXAM WERE SENT TO THE PATIENT. ACR BI-RADS Category 2 - Benign finding MAMMOGRAPHY NOTE: 1. A negative mammogram report should not delay a biopsy if a dominant of clinically suspicious mass is present. 2. Approximately 10% to 15% of breast cancers are not detected by mammography. 3. Adenosis and dense breasts may obscure an underlying neoplasm.
== END 2018-08-14 11:04 | disposition home or self-care (01) ==
LOC: BICMAMMO 11:03
PROVIDERS: ATTEND Family Medicine
DX: Z12.31 Encounter for screening mammogram for malignant neoplasm of breast (principal); Z90.11 Acquired absence of right breast and nipple
CPT/HCPCS: 77063; 77067

== ENCOUNTER 2019-04-21 11:16 | Emergency (ER) | payer MEDICARE, OTHER ==
--- NOTE | 2019-04-21 11:55 | RAD ---
EXAM: Single view of the chest HISTORY: Dizziness and fall COMPARISON: 01/22/2018 FINDINGS: Single view of the chest shows an enlarged but stable cardiomediastinal silhouette. Athero sclerotic calcifications are seen in the aorta. The patient is status post sternotomy. There is no evidence of consolidation, mass, or pleural effusion. Degenerative changes are seen in the spine and shoulders. IMPRESSION: Cardiomegaly without evidence of acute cardiopulmonary disease
[2019-04-21 12:01] LABS: #Eosinphils 0.1 thou/uL (0.0-0.7); #Lymphocytes 0.6 thou/uL (1.20-3.40); #Monocytes 1.1 thou/uL (0.11-0.59); #Neutrophils 7.1 thou/uL (1.40-6.50); %Eosinophils 1.4 % (0.0-10.0); %Lymphocytes 6.6 % (21.0-51.0); %Monocytes 12.6 % (0.0-10.0); %Neutrophils 79.3 % (42.0-75.0); Hemoglobin 14.1 g/dL (12.0-16.0); Mean Corpuscular HGB CONC 32.9 g/dL (32.0-36.0); Mean Corpuscular Hemoglobin 30.7 pg (27.0-31.0); Mean Corpuscular Volume 93.1 fL (78.0-98.0); Mean Platelet Volume 8.5 fL (7.4-10.4); Platelet Count 147 thou/uL (130-400); RBC Distribution Width 13.4 % (11.5-14.5); Red Blood Cell (RBC) Count 4.61 mill/uL (4.20-5.40)
[2019-04-21 12:28] LABS: ALT (SGPT) 16 U/L (8-55); AST (SGOT) 22 U/L (5-34); Albumin 4.8 g/dL (3.4-4.8); Alkaline Phosphatase 79 U/L (40-110); Anion Gap 14 mmol/L (10-20); BUN (Urea Nitrogen) 28 mg/dL (9.8-20.1); Bilirubin, Total 0.7 mg/dL (0.2-1.2); Calc. Creatinine Clearance 0 mL/min (70-130); Calcium 9.8 mg/dL (7.8-10.44); Carbon Dioxide 29 mmol/L (23-31); Chloride 100 mmol/L (98-107); Estimated GFR-MDRD 43; Globulin 2.7 g/dL (2.4-3.5); Glucose 93 mg/dL (83-110); Potassium 4.4 mmol/L (3.5-5.1); Protein, Total 7.5 g/dL (6.0-8.3); Sodium 139 mmol/L (136-145)
[2019-04-21 12:49] LABS: CKMB 1.8 ng/mL (0-6.6)
--- NOTE | 2019-04-21 13:42 | CT ---
CT BRAIN NONCONTRAST: DATE: 04/21/2019 HISTORY: 88-year-old female status post head, from fall. Dizziness. Prior strokes. COMPARISON: 12/25/2017. FINDINGS: There is no evidence of acute intra-axial or extra-axial hemorrhage. There is no midline shift or any other mass effect. There is no extra-axial fluid collection. Mild to moderate diffuse ventriculomegaly is unchanged. Tiny old lacunar infarction in left cerebellar hemisphere, unchanged. Possible additional tiny old lacunar infarctions in bilateral corpus striatum.. Calvarium is intact. There is diffuse brain parenchymal volume loss. There are low attenuation areas in the white matter. 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 No interval change overall. IMPRESSION: 1) No acute intracranial findings. 2) involutional changes and chronic ischemic white matter changes. 3) a few tiny old lacunar infarctions.
--- NOTE | 2019-04-21 13:42 | CT ---
EXAM: CT of the cervical spine without contrast HISTORY: Fall last night with neck pain COMPARISON: 03/07/2016 TECHNIQUE: Multiple contiguous axial images were obtained in a CT of the cervical spine without contr ast. Sagittal and coronal reformats were performed. FINDINGS: The vertebral bodies demonstrate normal height and alignment without fracture or subluxatio n. Moderate degenerative changes are seen throughout the cervical spine. No prevertebral soft tissue swelling is seen. The posterior facets are well aligned. Normal alignment of the skull base with the cervical spine is seen. Calcifications are seen in the carotid arteries. The lung apices are unremarkable. IMPRESSION: No evidence of acute osseous abnormality of the cervical spine.
--- NOTE | 2019-04-21 14:45 | RAD ---
EXAM: Right Rib series HISTORY: Rib pain COMPARISON: None FINDINGS: Multiple views of the right ribs shows no evidence of displaced rib fracture. No underlying pleural t hickening or pneumothorax are seen. Severe degenerative changes are seen in the right shoulder. The patient is status post sternotomy. IMPRESSION: 1. No evidence of displaced rib fracture.
[2019-04-21 16:04] LABS: Troponin I 0.012 ng/mL (< 0.028)
== END 2019-04-21 16:30 | disposition home or self-care (01) ==
LOC: ERS 11:16
DX: R42 Dizziness and giddiness (principal); E78.5 Hyperlipidemia, unspecified; I10 Essential (primary) hypertension; M19.90 Unspecified osteoarthritis, unspecified site; I48.91 Unspecified atrial fibrillation; F03.90 Unspecified dementia, unspecified severity, without behavioral disturbance, psychotic disturbance, mood disturbance, and anxiety; Z87.891 Personal history of nicotine dependence; Z79.899 Other long term (current) drug therapy; Z86.73 Personal history of transient ischemic attack (TIA), and cerebral infarction without residual deficits; Z79.82 Long term (current) use of aspirin; W18.30XA Fall on same level, unspecified, initial encounter
CPT/HCPCS: 36415; 70450; 71045; 72125; 80053; 82553; 84484; 85025; 93005

== ENCOUNTER 2019-11-24 15:24 | Outpatient (CLI) | payer MEDICARE, OTHER ==
[2019-11-25 14:22] LABS: SARS-CoV-2 MS2 Positive; SARS-CoV-2 N Gene Negative; SARS-CoV-2 S Gene Negative; SARS-CoV-2 by NAA Not Detected (NotDetected); SARS-CoV-2 orf1ab Negative
== END 2019-11-24 15:25 | disposition home or self-care (01) ==
LOC: LABBT 15:24
PROVIDERS: ATTEND Internal Medicine Cardiovascular Disease
DX: Z01.812 Encounter for preprocedural laboratory examination (principal); Z11.59 Encounter for screening for other viral diseases; I48.91 Unspecified atrial fibrillation
CPT/HCPCS: 87635; U0003